=== PATIENT | female | born 1990 | race Caucasian/White ===

== ENCOUNTER 2025-01-28 18:56 | Emergency (ER) | payer MEDICAID, SELFPAY ==
[2025-01-28 18:57] VITALS: BP 139/82
--- NOTE | 2025-01-28 19:56 | ED.GENMED ---
History of Present Illness
General
Chief Complaint: Dental Problem
Source: patient
Exam Limitations: none
Time Seen by Provider: 01/28/25 19:14
Nursing documentation reviewed up to this point in time: agreed with
History of Present Illness
History of Present Illness:
35-year-old female presents with left lower jaw dental pain. She states she did a telehealth appointment yesterday and was given prescription for amoxicillin 500 mg 3 times daily, she has had a total of 2 doses but states the pain is no better.
She denies fever or chills. Denies nausea. She denies sore throat or pain in the throat. She denies neck pain. She has taken Tylenol for pain and just picked up some ibuprofen but has taken none yet. She does have a dentist at [facility].
She has not called for an appointment yet because in the past she has told that she has been on antibiotics for several days prior to appointment
Past History
Past History
ED Past Medical History: Psychiatric (Depression and substance abuse)
ED Past Surgical History: None
Social History
Tobacco: Smoker
Alcohol: Occasional
Drug: IVDA (History of heroin abuse)
Personal: Single
Living: with family
Employment: Not employed
Family History
Family History: Other (Noncontributory)
Review of Systems
Review of Systems
Allergies reviewed?: Yes
All Other Systems: ROS reviewed and negative except as documented in HPI and ROS
Phy Exam
Physical Exam
Physical Exam:
GENERAL: No acute distress. A&Ox3.
CONSTITUTIONAL: Afebrile.
Neck: Supple, no lymphadenopathy
EYES: clear, conjunctivae normal
ENMT: moist mucus membranes, Pharynx nl, the 2 back most lower left molars are significantly decayed. No palpable abscess. No trismus. No lymphadenopathy.
RESPIRATORY: Regular respirations, nonlabored, lungs clear.
CARDIOVASCULAR: Regular rate and rhythm, no murmurs, no rubs.
MUSCULOSKELETAL: Moves with ease. Well perfused.
SKIN: Warm, dry, pink
PSYCH: Normal mood and affect. Well kept, interactive and appropriate
NEUROLOGIC: Awake, alert and oriented. No focal neurological deficits
Course
Orders/Labs/Results
Orders:
Orders
01/28/25 20:00
Ketorolac [Toradol] 30 mg IM NOW STA
Vital Signs
Initial and Last Documented VS:
Initial Vital Signs
Temp Pulse Resp BP Pulse Ox
98.4 F 105 18 139/82 98
01/28/25 18:57 01/28/25 18:57 01/28/25 18:57 01/28/25 18:57 01/28/25 18:57
Last Documented Vital Signs
Temp Pulse Resp BP Pulse Ox
98.4 F 105 18 139/82 98
01/28/25 18:57 01/28/25 18:57 01/28/25 18:57 01/28/25 18:57 01/28/25 20:00
MDM/Problems Addressed
Differential Diagnosis Includes:
Abscess, dental caries
MDM/Problems Addressed:
35-year-old female presents with left lower jaw dental pain. She states she did a telehealth appointment yesterday and was given prescription for amoxicillin 500 mg 3 times daily, she has had a total of 2 doses but states the pain is no better.
She denies fever or chills. Denies nausea. She denies sore throat or pain in the throat. She denies neck pain. She has taken Tylenol for pain and just picked up some ibuprofen but has taken none yet. She does have a dentist at [facility].
She has not called for an appointment yet because in the past she has told that she has been on antibiotics for several days prior to appointment
Afebrile, NAD
No fever, no lymphadenopathy, no trismus, no significant swelling, no palpable abscess, left back to molars are significantly decayed. She needs those teeth pulled.
No sign of tonsillar or retropharyngeal abscess
She does have a dentist she will call tomorrow to make the appointment. If they cannot see her right away she will call [facility] as they take more urgent cases.
*Pulse Oximetry
SaO2: 98
Oxygen Mode of Delivery: Room air
Patient hypoxic: not evaluated
*Critical Care Note
Total Time (30-74mins, 75-104mins- exclusive of procedures): Not Applicable
ED Attending Note
-
Portions of this chart may have been created with voice recognition software.� Occasional wrong word or��sound alike� substitutions may have occurred due to the inherent limitations of voice recognition software.
Discharge Plan
Departure
Patient Disposition: Home (Routine Discharge)
Date of Disposition: 01/28/25
Time of Disposition: 19:50
Patient with high blood pressure during this ER visit?: No
Condition: Good
Discharge Problem:
Pain due to dental caries
Instructions: Tooth Abscess (DC), Tooth Decay, Adult (DC)
Prescriptions:
No Action
levonorgestrel-ethinyl estrad [Rudyd (28)] 1 EACH tablet
1 ea PO DAILY
oxycodone-acetaminophen 5 MG/325 MG tablet
1 tab PO Q4HPRN PRN (Reason: pain) Qty: 9 0RF
Referrals:
[facility] or [facility] [Other] - Keep scheduled appt
Toño Garcia MD [Family Provider, Family Practice]
Activity Restrictions/Additional Instructions:
As we discussed, if you have an abscess, it is very small and nothing to drain at this point.
Keep your appointment with your dentist.
Ibuprofen 600 mg, with food, every 6 hours as needed for pain.
Either eat yogurt daily or take a probiotic daily while you are on the antibiotic to avoid diarrhea or other antibiotic provoked bowel infections
Interventions
Interventions:
*Risk Screen - Suicide Last Done: 01/28/25 18:57
*General Assessment Last Done: 01/28/25 19:45
*Neglect/Abuse Screening Last Done: 01/28/25 19:45
*ED- Fall Risk Assessment Last Done: 01/28/25 19:45
*ED COVID-19 Vaccine History Last Done: 01/28/25 19:45
*Nursing Disposition Last Done: 01/28/25 20:36
Discharge Date and Time
Discharge Date/Time: 01/28/25 20:37
Print Language: FRENCH
== END 2025-01-28 20:37 | disposition home or self-care (01) ==
LOC: EMR 18:56
PROVIDERS: EMERGENCY PHYSICIAN Student in an Organized Health Care Education/Training Program; FAMILY PHYSICIAN Family Medicine
DX: K02.9 Dental caries, unspecified (principal); K08.89 Other specified disorders of teeth and supporting structures; F17.200 Nicotine dependence, unspecified, uncomplicated
CPT/HCPCS: 99282